=== PATIENT | female | born 1970 | race Caucasian/White ===

== ENCOUNTER 2023-08-03 21:02 | Emergency (ER) | payer BC, OTHER ==
[2023-08-03 21:07] VITALS: BP 101/53; PULSE 77; RESP 16; TEMP 97.7; BMI 22.3
[2023-08-03] MEDS ORDERED: KETOROLAC TROMETHAMINE 30 MG/1 ML VIAL ONE (23:05)
[2023-08-03] MEDS: KETOROLAC TROMETHAMINE 30 MG/1 ML VIAL IM ONE (23:10)
== END 2023-08-04 02:36 | disposition home or self-care (01) ==
LOC: JERFT 21:02 → JER 21:02
PROC: 3E0233Z Introduction of Anti-inflammatory into Muscle, Percutaneous Approach (ICD-10-PCS; principal; 2023-08-03)
DX: S49.91XA Unspecified injury of right shoulder and upper arm, initial encounter (principal); M25.511 Pain in right shoulder; R07.81 Pleurodynia; W10.9XXA Fall (on) (from) unspecified stairs and steps, initial encounter
CPT/HCPCS: 71101-TC-RT-FY; 73030-TC-RT-FY; 99284-25